=== PATIENT | female | born 1985 | race Caucasian/White ===

== ENCOUNTER 2019-07-03 08:16 | Emergency (ER) | payer OTHER, MEDICAID ==
[2019-07-03] MEDS: FLUCONAZOLE 150 MG TAB PO (09:10)
[2019-07-03 09:13] LABS: URINE BLOOD (Dip) POC Negative (NEGATIVE); URINE GLUCOSE (Dip) POC Negative (NEGATIVE); URINE KETONES (Dip) POC Negative (NEGATIVE); URINE LEUKOCYTE EST (Dip) POC Trace (NEGATIVE); URINE NITRITE (Dip) POC Negative (NEGATIVE); URINE TOTAL PROTEIN POC Trace (NEGATIVE)
[2019-07-03 09:13] LABS: URINE PH (Dip) POC 7.5 (5.0-8.5)
== END 2019-07-03 09:57 | disposition home or self-care (01) ==
LOC: FTE 08:16
DX: N39.0 Urinary tract infection, site not specified (principal); R10.2 Pelvic and perineal pain
CPT/HCPCS: 81003; 81025; 87591; 99283